=== PATIENT | male | born 1935 | race Caucasian/White ===

== ENCOUNTER 2016-11-07 11:45 | Emergency (ER) | payer OTHER ==
[~2016-11-07] VITALS: Ht 180.3 cm; Wt 94.5 kg
[~2016-11-07 11:45] MED LIST: ASPIRIN325 MG PO; CLINDAMYCIN PO; FLOXIN OTIC SOLN5 ML LEFT EAR; FUROSEMIDE40 MG PO; K-DUR20 MEQ PO; LASIX40 MG PO; LIPITOR40 MG PO; LISINOPRIL20 MG PO; LISINOPRIL40 MG PO; LOPRESSOR25 MG PO; LOVAZA1 GM PO; LOW DOSE ASPIRI81 M1 PO; METOPROLOL TART25 MG PO; OMEGA-3 + VITA1 EAC2 PO; POTASSIUM CHLO20 ME1 PO; POTASSIUM CHLO20 ME2 PO; PRINIVIL10 MG PO; PROAIR HFA8.5 GM IH; ZOLOFT50 MG PO
[2016-11-07 12:45] LABS: HEMATOCRIT 44.1 % (38.0-50.0); MCH 29.2 PG (29.0-34.0); MCHC 32.7 G/DL (30.0-36.0); MCV 89.5 FL (86-99); MEAN PLAT.VOLUME 10.4 uM^3 (9.0-12.4); PLATELET COUNT 191 K/uL (156-360); RBC DIS.WIDTH-CV 13.2 % (11.8-14.6); RBC DIS.WIDTH-SD 43.8 % (39-53); RED BLOOD COUNT 4.93 M/uL (4.00-5.50)
[2016-11-07 12:55] LABS: CHLORIDE 108 mEq/L (99-109); POTASSIUM 3.5 mEq/L (3.7-5.4); SODIUM 145 mEq/L (136-147)
[2016-11-07 12:58] LABS: GLUCOSE 117 mg/dL (70-99)
[2016-11-07 12:59] LABS: ANION GAP 9 MEQ/L (2-14)
[2016-11-07 13:00] LABS: TOTAL BILIRUBIN 2.2 mg/dL (0.0-1.0)
[2016-11-07 13:01] LABS: ALKALINE PHOSPHATASE 98 IU/L (3-129); GFR ESTIMATE (CALCULATED) > 59 mL/min/
[2016-11-07 13:02] LABS: UREA NITROGEN (BUN) 16 mg/dL (9-23)
[2016-11-07] MEDS ORDERED: METOPROLOL SUCC25 MG PO (13:19)
[2016-11-07] MEDS ORDERED: LANTUS 10100 UNITS/ SC (13:19)
[2016-11-07] MEDS ORDERED: MEMANTINE HCL5 MG PO (13:19)
[2016-11-07 15:15] LABS: ADD MIUA? YES; BILIRUBIN NEGATIVE; BLOOD SMALL; COLOR YELLOW ((YELLOW)); GLUCOSE (STRIP) NEGATIVE; KETONES 5; LEUKOCYTES NEGATIVE; NITRITE NEGATIVE; PROTEIN (STRIP) 100; SPECIFIC GRAVITY 1.018 (1.000-1.030)
[2016-11-07 15:19] LABS: BACTERIA NONE SEEN /HPF; EPITHELIAL CELLS NONE SEEN /HPF; MUCUS TRACE /LPF; RED BLOOD CELLS 0-5 /HPF (0-5); UCUL ADDED? NO; WHITE BLOOD CELLS 0-5 /HPF (0-5)
[2016-11-07 16:10] VITALS: BP 148/68
== END 2016-11-07 16:10 | disposition home or self-care (01) ==
LOC: EME 11:45
PROVIDERS: Emergency Medicine
DX: S09.90XA Unspecified injury of head, initial encounter (principal); F03.90 Unspecified dementia, unspecified severity, without behavioral disturbance, psychotic disturbance, mood disturbance, and anxiety; W07.XXXA Fall from chair, initial encounter; I11.0 Hypertensive heart disease with heart failure; I50.9 Heart failure, unspecified; I25.2 Old myocardial infarction; E78.5 Hyperlipidemia, unspecified; Z95.1 Presence of aortocoronary bypass graft; Z95.5 Presence of coronary angioplasty implant and graft; Z87.891 Personal history of nicotine dependence
CPT/HCPCS: 70450; 80053; 81003; 85027; 93005; 99281; 99285

== ENCOUNTER 2017-04-25 10:15 | Inpatient (IN) | payer OTHER ==
[~2017-04-25] VITALS: Ht 170.2 cm; Wt 92.0 kg
[~2017-04-25 10:15] MED LIST changes: +LANTUS 10100 UNITS/ SC; +MEMANTINE HCL5 MG PO; +METOPROLOL SUCC25 MG PO
[2017-04-25 11:39] LABS: MCH 29.8 PG (29.0-34.0); MCHC 33.3 G/DL (30.0-36.0); MCV 89.5 FL (86-99); PLATELET COUNT 213 K/uL (156-360); RBC DIS.WIDTH-CV 13.4 % (11.8-14.6); RBC DIS.WIDTH-SD 43.6 % (39-53); RED BLOOD COUNT 5.03 M/uL (4.00-5.50); WHITE BLOOD COUNT 14.1 K/uL (4.1-10.2)
[2017-04-25 11:50] LABS: CHLORIDE 108 mEq/L (99-109); POTASSIUM 3.8 mEq/L (3.7-5.4); SODIUM 143 mEq/L (136-147)
[2017-04-25 11:51] LABS: GLUCOSE 53 mg/dL (70-99)
[2017-04-25 11:55] LABS: CREATININE 1.1 mg/dL (0.6-1.3); GFR ESTIMATE (CALCULATED) > 59 mL/min/ (58.99-99999)
[2017-04-25 11:56] LABS: UREA NITROGEN (BUN) 19 mg/dL (9-23)
[2017-04-25 13:30] LABS: APPEARANCE CLEAR ((CLEAR)); BILIRUBIN NEGATIVE; BLOOD NEGATIVE; COLOR YELLOW ((YELLOW)); GLUCOSE (STRIP) NEGATIVE; KETONES NEGATIVE; LEUKOCYTES NEGATIVE; NITRITE NEGATIVE; PROTEIN (STRIP) NEGATIVE; SPECIFIC GRAVITY 1.021 (1.000-1.030); UROBILINOGEN 0.2 MG/DL (0.2-1.0)
[2017-04-25] MEDS ORDERED: ZESTRIL5 MG PO (17:44)
[2017-04-25] MEDS ORDERED: VENTOLIN HFA18 GM IH (17:45)
[2017-04-25] MEDS ORDERED: OMEPRAZOLE40 M1 PO (17:45)
[2017-04-25] MEDS ORDERED: NITROSTAT0.4 MG SL (17:46)
[2017-04-25] MEDS ORDERED: QUESTRAN PACKET4 GM PO (17:46)
[2017-04-25] MEDS ORDERED: ZOLOFT100 MG PO (17:47)
[2017-04-25 20:32] VITALS: BP 148/70
[2017-04-25 21:32] VITALS: BP 148/70
[2017-04-26 04:02] VITALS: BP 126/68
[2017-04-26 06:47] LABS: HEMATOCRIT 43.7 % (38.0-50.0); HEMOGLOBIN 14.3 G/DL (12.5-16.6); MCH 28.9 PG (29.0-34.0); MCHC 32.7 G/DL (30.0-36.0); MCV 88.5 FL (86-99); PLATELET COUNT 229 K/uL (156-360); RBC DIS.WIDTH-CV 13.2 % (11.8-14.6); RBC DIS.WIDTH-SD 43.1 % (39-53); RED BLOOD COUNT 4.94 M/uL (4.00-5.50); WHITE BLOOD COUNT 9.7 K/uL (4.1-10.2)
[2017-04-26 07:16] LABS: CHLORIDE 101 MEQ/L (99-109); CREATININE 1.1 MG/DL (0.6-1.3); GFR ESTIMATE (CALCULATED) > 59 mL/min/ (58.99-99999); MAGNESIUM 2.1 mg/dl (1.3-2.7); POTASSIUM 4.4 MEQ/L (3.7-5.4); SODIUM 138 MEQ/L (136-147); UREA NITROGEN (BUN) 17 mg/dL (9-23)
[2017-04-26 07:18] LABS: GLUCOSE 179 mg/dL (70-99)
[2017-04-26 07:24] VITALS: BP 168/72
[2017-04-26 11:05] VITALS: BP 130/60
[2017-04-26 15:04] VITALS: BP 130/60
[2017-04-27 00:13] VITALS: BP 140/65
[2017-04-27 03:32] VITALS: BP 119/51
[2017-04-27 06:17] LABS: BASOPHIL (%) 0.2 % (0-1); EOSINOPHIL (%) 0 % (0-5); HEMATOCRIT 39.1 % (38.0-50.0); HEMOGLOBIN 12.9 G/DL (12.5-16.6); IMMATURE GRANULOCYTE (%) 0.6 % (0.0-0.7); LYMPHOCYTE (%) 6.8 % (15-42); LYMPHOCYTE COUNT 0.9 K/uL (1.0-2.8); MCH 29.3 PG (29.0-34.0); MCV 88.9 FL (86-99); MONOCYTE (%) 3.1 % (3-12); MONOCYTE COUNT 0.4 K/uL (0-0.8); NEUTROPHIL (%) 89.3 % (45-76); NEUTROPHIL COUNT 11.3 K/uL (1.8-6.4); PLATELET COUNT 219 K/uL (156-360); RBC DIS.WIDTH-CV 13.3 % (11.8-14.6); RBC DIS.WIDTH-SD 43.5 % (39-53); WHITE BLOOD COUNT 12.6 K/uL (4.1-10.2)
[2017-04-27 06:58] LABS: CHLORIDE 102 MEQ/L (99-109); CREATININE 1.2 MG/DL (0.6-1.3); GFR ESTIMATE (CALCULATED) > 59 mL/min/ (58.99-99999); GLUCOSE 235 mg/dL (70-99); POTASSIUM 4.3 MEQ/L (3.7-5.4); SODIUM 138 MEQ/L (136-147); UREA NITROGEN (BUN) 21 mg/dL (9-23)
[2017-04-27 07:52] VITALS: BP 142/68
[2017-04-27 13:43] VITALS: BP 138/63
[2017-04-27 15:16] LABS: HEMOGLOBIN A1c (GLYCOHEMOGLOB) 5.9 % (Below 5.7)
[2017-04-27 16:23] VITALS: BP 123/62
[2017-04-27 19:38] VITALS: BP 126/60
[2017-04-28 00:07] VITALS: BP 125/68
[2017-04-28 03:54] VITALS: BP 129/60
[2017-04-28 07:09] VITALS: BP 146/70
[2017-04-28 08:02] LABS: BASOPHIL (%) 0.9 % (0-1); BASOPHIL COUNT 0.1 K/uL (0-0.1); EOSINOPHIL (%) 3.1 % (0-5); EOSINOPHIL COUNT 0.3 K/uL (0-0.3); HEMOGLOBIN 13.1 G/DL (12.5-16.6); IMMATURE GRANULOCYTE (%) 0.5 % (0.0-0.7); LYMPHOCYTE (%) 23.1 % (15-42); LYMPHOCYTE COUNT 2.6 K/uL (1.0-2.8); MCH 28.1 PG (29.0-34.0); MONOCYTE (%) 6.3 % (3-12); MONOCYTE COUNT 0.7 K/uL (0-0.8); NEUTROPHIL (%) 66.1 % (45-76); NEUTROPHIL COUNT 7.3 K/uL (1.8-6.4); PLATELET COUNT 228 K/uL (156-360); RBC DIS.WIDTH-CV 13.3 % (11.8-14.6); RBC DIS.WIDTH-SD 42.9 % (39-53); RED BLOOD COUNT 4.66 M/uL (4.00-5.50); WHITE BLOOD COUNT 11.1 K/uL (4.1-10.2)
[2017-04-28 08:54] LABS: CHLORIDE 103 MEQ/L (99-109); CREATININE 1.1 MG/DL (0.6-1.3); GFR ESTIMATE (CALCULATED) > 59 mL/min/ (58.99-99999); POTASSIUM 3.5 MEQ/L (3.7-5.4); SODIUM 141 MEQ/L (136-147); UREA NITROGEN (BUN) 21 mg/dL (9-23)
[2017-04-28 08:59] LABS: GLUCOSE 107 mg/dL (70-99)
[2017-04-28] MEDS ORDERED: DUONEB 2.5-0.5 M3 ML AEROSOL (10:46)
[2017-04-28] MEDS ORDERED: CEFTIN500 MG PO (10:46)
[2017-04-28] MEDS ORDERED: DOCUSATE SODIU100 MG PO (10:47)
[2017-04-28] MEDS ORDERED: ADVAIR HFA120 INHAL1 IH (10:47)
[2017-04-28] MEDS ORDERED: ONDANSETRON4 MG/2 ML IV (10:47)
[2017-04-28 10:48] VITALS: BP 128/62
[2017-04-28] MEDS ORDERED: PREDNISONE10 MG PO (10:48)
[2017-04-28] MEDS ORDERED: LEVEMIR100 UNIT/2 SC (10:49)
[2017-04-28] MEDS ORDERED: NOVOLOG 10100 UNITS/ SC (10:49)
[2017-04-28] MEDS ORDERED: BACITRACIN28.4 GM TP (10:50)
== END 2017-04-28 14:43 | DRG 191 ==
LOC: EME 10:15 → 5SOUTH 19:14 → EDOF 19:14 → ENRESERV 19:18 → 5SOUTH 21:38
PROVIDERS: Internal Medicine; Physician Assistant; Physician Assistant Medical
DX: J44.1 Chronic obstructive pulmonary disease with (acute) exacerbation (principal); E11.649 Type 2 diabetes mellitus with hypoglycemia without coma; R65.10 Systemic inflammatory response syndrome (SIRS) of non-infectious origin without acute organ dysfunction; I11.0 Hypertensive heart disease with heart failure; I50.42 Chronic combined systolic (congestive) and diastolic (congestive) heart failure; E11.51 Type 2 diabetes mellitus with diabetic peripheral angiopathy without gangrene; E78.5 Hyperlipidemia, unspecified; F03.90 Unspecified dementia, unspecified severity, without behavioral disturbance, psychotic disturbance, mood disturbance, and anxiety; L89.322 Pressure ulcer of left buttock, stage 2; G43.909 Migraine, unspecified, not intractable, without status migrainosus; S00.83XA Contusion of other part of head, initial encounter; S61.401A Unspecified open wound of right hand, initial encounter; W18.30XA Fall on same level, unspecified, initial encounter; R29.6 Repeated falls; Z66 Do not resuscitate; I25.810 Atherosclerosis of coronary artery bypass graft(s) without angina pectoris; I25.10 Atherosclerotic heart disease of native coronary artery without angina pectoris; I25.82 Chronic total occlusion of coronary artery; I25.5 Ischemic cardiomyopathy; I25.2 Old myocardial infarction; Z86.718 Personal history of other venous thrombosis and embolism; Z79.4 Long term (current) use of insulin; Z79.82 Long term (current) use of aspirin; Z87.891 Personal history of nicotine dependence; Z95.1 Presence of aortocoronary bypass graft; Z95.5 Presence of coronary angioplasty implant and graft
CPT/HCPCS: 70450; 71250; 80048; 81003; 82948; 83036; 83735; 85025; 85027; 87040; 87070; 87205; 87502; 92610 GN; 93005; 94640; 94640 76; 99202; 99281; 99285; J0295; J0456; J1644; J2920; J7050; J7512

== ENCOUNTER 2017-08-05 18:24 | Inpatient (IN) | payer OTHER ==
[~2017-08-05] VITALS: Ht 167.6 cm; Wt 74.8 kg
[~2017-08-05 18:24] MED LIST changes: +ADVAIR HFA120 INHAL1 IH; +BACITRACIN28.4 GM TP; +CEFTIN500 MG PO; +DOCUSATE SODIU100 MG PO; +DUONEB 2.5-0.5 M3 ML AEROSOL; +LEVEMIR100 UNIT/2 SC; +NITROSTAT0.4 MG SL; +NOVOLOG 10100 UNITS/ SC; +ONDANSETRON4 MG/2 ML IV; +PREDNISONE10 MG PO; +PRILOSEC20 MG PO; +QUESTRAN PACKET4 GM PO; +VENTOLIN HFA18 GM IH; +ZESTRIL5 MG PO; +ZOLOFT100 MG PO
[2017-08-05 19:09] LABS: HEMOGLOBIN 13.6 G/DL (12.5-16.6); MCHC 32.4 G/DL (30.0-36.0); MCV 92.7 FL (86-99); PLATELET COUNT 218 K/uL (156-360); RBC DIS.WIDTH-CV 15.4 % (11.8-14.6); RBC DIS.WIDTH-SD 52.9 % (39-53); RED BLOOD COUNT 4.53 M/uL (4.00-5.50); WHITE BLOOD COUNT 18.2 K/uL (4.1-10.2)
[2017-08-05 19:17] LABS: INTER. NORMALIZED RATIO 1.5
[2017-08-05 19:20] LABS: ALBUMIN 3.3 g/dL (3.2-4.8); CHLORIDE 117 mEq/L (99-109); POTASSIUM 3.5 mEq/L (3.7-5.4); PTT 29.4 SEC (25-37); SODIUM 159 mEq/L (136-147)
[2017-08-05 19:22] LABS: GLUCOSE 154 mg/dL (70-99)
[2017-08-05 19:24] LABS: TOTAL BILIRUBIN 0.7 mg/dL (0.0-1.0)
[2017-08-05 19:26] LABS: ALKALINE PHOSPHATASE 118 IU/L (3-129); CREATININE 2.7 mg/dL (0.6-1.3); GFR ESTIMATE (CALCULATED) 24 mL/min/ (58.99-99999)
[2017-08-05 19:27] LABS: UREA NITROGEN (BUN) 51 mg/dL (9-23)
[2017-08-05 19:28] LABS: AST (GOT) 65 IU/L (2-34)
[2017-08-05 19:29] LABS: ALT (GPT) 48 IU/L (3-49)
[2017-08-05 19:42] LABS: MAGNESIUM 2.3 mg/dL (1.3-2.7)
[2017-08-05 19:54] LABS: TROP-I INTERPRETATION NEGATIVE; TROPONIN-I 0.26 ng/mL (0.0-0.30)
[2017-08-05 21:14] LABS: C DIFF TOXIN NEGATIVE (NEGATIVE)
[2017-08-05] MEDS ORDERED: DULCOLAX10 MG PR (21:19)
[2017-08-05] MEDS ORDERED: FLEET ENEMA-AD118 ML PR (21:20)
[2017-08-05] MEDS ORDERED: GLUCAGEN1 M1 IM (21:20)
[2017-08-05] MEDS ORDERED: GLUCOSE GEL38 GM PO (21:20)
[2017-08-05] MEDS ORDERED: LEVEMIR FL100 UNIT/1 SC (21:21)
[2017-08-05] MEDS ORDERED: LIPITOR40 MG PO (21:21)
[2017-08-05] MEDS ORDERED: PHILLIPS'400 MG/5 M PO (21:23)
[2017-08-05] MEDS ORDERED: NOVOLOG PE100 UNITS/ SC (21:23)
[2017-08-05] MEDS ORDERED: PENTOXIFYLLINE400 MG PO (21:24)
[2017-08-05] MEDS ORDERED: PLAVIX75 MG PO (21:24)
[2017-08-05] MEDS ORDERED: REMERON15 M2 PO (21:26)
[2017-08-05] MEDS ORDERED: TYLENOL REGULA325 MG PO (21:26)
[2017-08-05] MEDS ORDERED: AMMONIUM LACTA224 GM TP (21:28)
[2017-08-05] MEDS ORDERED: DAKINS SOLUTIO473 M1 TP (21:28)
[2017-08-05] MEDS ORDERED: SILVADENE20 GM TP (21:29)
[2017-08-05 22:13] LABS: APPEARANCE CLOUDY ((CLEAR)); BILIRUBIN NEGATIVE; BLOOD SMALL; COLOR YELLOW ((YELLOW)); GLUCOSE (STRIP) NEGATIVE; KETONES NEGATIVE; LEUKOCYTES LARGE; NITRITE NEGATIVE; PROTEIN (STRIP) 30; SPECIFIC GRAVITY 1.016 (1.000-1.030); UROBILINOGEN 0.2 MG/DL (0.2-1.0)
[2017-08-05 22:42] LABS: EPITHELIAL CELLS NONE SEEN /HPF; RED BLOOD CELLS 0-5 /HPF (0-5); WHITE BLOOD CELLS 40-50 /HPF (0-5)
[2017-08-05 22:43] LABS: AMORPHOUS URATES CRYSTALS 3+; BACTERIA 2+ /HPF; HYALINE CASTS TNTC /LPF; MUCUS RARE /LPF; UCUL ADDED? YES
[2017-08-05 23:20] VITALS: BP 91/54
[2017-08-05 23:35] VITALS: BP 91/54
[2017-08-06] VITALS (8 sets, daily range): BP systolic 80–112; BP diastolic 46–62
[2017-08-06 06:37] LABS: HEMATOCRIT 41.7 % (38.0-50.0); HEMOGLOBIN 12.5 G/DL (12.5-16.6); MCH 28.5 PG (29.0-34.0); PLATELET COUNT 189 K/uL (156-360); RBC DIS.WIDTH-CV 15.5 % (11.8-14.6); RBC DIS.WIDTH-SD 54.5 % (39-53); RED BLOOD COUNT 4.39 M/uL (4.00-5.50); WHITE BLOOD COUNT 16.1 K/uL (4.1-10.2)
[2017-08-06 07:02] LABS: TROP-I INTERPRETATION NEGATIVE
[2017-08-06 07:10] LABS: ALBUMIN 2.9 G/DL (3.2-4.8); ALKALINE PHOSPHATASE 100 IU/L (3-129); ALT (GPT) 32 IU/L (3-49); AST (GOT) 43 IU/L (2-34); CHLORIDE 122 MEQ/L (99-109); CREATININE 2.5 MG/DL (0.6-1.3); GFR ESTIMATE (CALCULATED) 27 mL/min/ (58.99-99999); POTASSIUM 3.4 MEQ/L (3.7-5.4); SODIUM 160 MEQ/L (136-147); TOTAL BILIRUBIN 0.7 MG/DL (0.0-1.0); TOTAL PROTEIN 5.6 G/DL (6.4-8.3); UREA NITROGEN (BUN) 57 mg/dL (9-23)
[2017-08-06 07:11] LABS: GLUCOSE 113 mg/dL (70-99)
[2017-08-07 03:30] VITALS: BP 130/62
[2017-08-07 05:57] LABS: ALBUMIN 2.4 G/DL (3.2-4.8); ALKALINE PHOSPHATASE 74 IU/L (3-129); ALT (GPT) 27 IU/L (3-49); AST (GOT) 44 IU/L (2-34); CHLORIDE 118 MEQ/L (99-109); GLUCOSE 103 mg/dL (70-99); POTASSIUM 3.1 MEQ/L (3.7-5.4); TOTAL BILIRUBIN 0.8 MG/DL (0.0-1.0); TOTAL PROTEIN 5.5 G/DL (6.4-8.3); UREA NITROGEN (BUN) 41 mg/dL (9-23)
[2017-08-07 06:09] LABS: CREATININE 1.6 MG/DL (0.6-1.3); GFR ESTIMATE (CALCULATED) 45 mL/min/ (58.99-99999); SODIUM 150 MEQ/L (136-147)
[2017-08-07 10:35] LABS: APPEARANCE CLOUDY ((CLEAR)); BILIRUBIN NEGATIVE; BLOOD MODERATE; COLOR YELLOW ((YELLOW)); GLUCOSE (STRIP) NEGATIVE; KETONES NEGATIVE; LEUKOCYTES LARGE; NITRITE NEGATIVE; PROTEIN (STRIP) NEGATIVE; SPECIFIC GRAVITY 1.019 (1.000-1.030); UROBILINOGEN 0.2 MG/DL (0.2-1.0)
[2017-08-07 11:08] LABS: BACTERIA RARE /HPF; EPITHELIAL CELLS 1+ /HPF; MUCUS NONE SEEN /LPF; RED BLOOD CELLS 40-50 /HPF (0-5); UCUL ADDED? YES; WHITE BLOOD CELLS 30-40 /HPF (0-5)
[2017-08-07 11:09] LABS: CALCIUM OXALATE CRYSTALS 1+ /HPF; URIC ACID CRYSTALS 1+ /HPF
[2017-08-07 11:47] VITALS: BP 107/57
[2017-08-07 12:23] LABS: PREALBUMIN 10.6 mg/dL (10-40)
[2017-08-07 15:51] VITALS: BP 110/59
[2017-08-07 19:52] VITALS: BP 109/55
[2017-08-07 23:20] VITALS: BP 118/56
[2017-08-08 06:19] LABS: HEMATOCRIT 36.3 % (38.0-50.0); HEMOGLOBIN 11.3 G/DL (12.5-16.6); MCH 28.7 PG (29.0-34.0); MCHC 31.1 G/DL (30.0-36.0); MCV 92.1 FL (86-99); PLATELET COUNT 158 K/uL (156-360); RBC DIS.WIDTH-CV 14.8 % (11.8-14.6); RBC DIS.WIDTH-SD 50.1 % (39-53); RED BLOOD COUNT 3.94 M/uL (4.00-5.50); WHITE BLOOD COUNT 10.8 K/uL (4.1-10.2)
[2017-08-08 06:28] LABS: CHLORIDE 118 MEQ/L (99-109); GFR ESTIMATE (CALCULATED) > 59 mL/min/ (58.99-99999); GLUCOSE 85 mg/dL (70-99); SODIUM 150 MEQ/L (136-147); UREA NITROGEN (BUN) 22 mg/dL (9-23)
[2017-08-08 06:36] LABS: CREATININE 1.1 MG/DL (0.6-1.3)
[2017-08-08 07:13] VITALS: BP 121/58
[2017-08-08 12:31] VITALS: BP 124/60
[2017-08-08 15:49] VITALS: BP 108/61
[2017-08-08 18:47] VITALS: BP 130/62
[2017-08-09 04:36] VITALS: BP 124/60
[2017-08-09 05:42] LABS: ALBUMIN 2.6 G/DL (3.2-4.8); ALKALINE PHOSPHATASE 74 IU/L (3-129); ALT (GPT) 27 IU/L (3-49); AST (GOT) 40 IU/L (2-34); CHLORIDE 117 MEQ/L (99-109); CREATININE 0.9 MG/DL (0.6-1.3); GFR ESTIMATE (CALCULATED) > 59 mL/min/ (58.99-99999); GLUCOSE 65 mg/dL (70-99); SODIUM 150 MEQ/L (136-147); TOTAL BILIRUBIN 0.7 MG/DL (0.0-1.0); TOTAL PROTEIN 5.6 G/DL (6.4-8.3); UREA NITROGEN (BUN) 13 mg/dL (9-23)
[2017-08-09 07:46] VITALS: BP 138/80
[2017-08-09 12:06] VITALS: BP 130/60
[2017-08-09 20:29] VITALS: BP 130/63
[2017-08-09 23:31] VITALS: BP 117/56
[2017-08-10 04:07] VITALS: BP 127/60
[2017-08-10 08:00] VITALS: BP 120/60
[2017-08-10 16:43] VITALS: BP 130/62
[2017-08-10 23:10] VITALS: BP 118/58
[2017-08-11 04:05] VITALS: BP 133/64
[2017-08-11 07:53] VITALS: BP 140/61
[2017-08-11 12:53] LABS: HEMATOCRIT 34.1 % (38.0-50.0); MCH 29.4 PG (29.0-34.0); MCHC 32.3 G/DL (30.0-36.0); MCV 91.2 FL (86-99); PLATELET COUNT 188 K/uL (156-360); RBC DIS.WIDTH-CV 15.1 % (11.8-14.6); RBC DIS.WIDTH-SD 50.1 % (39-53); RED BLOOD COUNT 3.74 M/uL (4.00-5.50); WHITE BLOOD COUNT 10.3 K/uL (4.1-10.2)
[2017-08-11 13:18] LABS: ALBUMIN 2.4 G/DL (3.2-4.8); ALKALINE PHOSPHATASE 72 IU/L (3-129); ALT (GPT) 25 IU/L (3-49); AST (GOT) 30 IU/L (2-34); CHLORIDE 115 MEQ/L (99-109); CREATININE 0.6 MG/DL (0.6-1.3); GFR ESTIMATE (CALCULATED) > 59 mL/min/ (58.99-99999); POTASSIUM 3.4 MEQ/L (3.7-5.4); SODIUM 146 MEQ/L (136-147); TOTAL PROTEIN 4.8 G/DL (6.4-8.3); UREA NITROGEN (BUN) 5 mg/dL (9-23)
[2017-08-11 13:24] LABS: GLUCOSE 108 mg/dL (70-99); TOTAL BILIRUBIN 0.5 MG/DL (0.0-1.0)
[2017-08-11] MEDS ORDERED: DOXYCYCLINE HY100 MG PO (14:00)
[2017-08-11] MEDS ORDERED: LEVEMIR100 UNIT/2 SC (14:00)
[2017-08-11 17:03] VITALS: BP 131/60
== END 2017-08-11 18:00 | DRG 872 ==
LOC: EME 18:24 → EDOF 21:45 → 4EAST 21:45 → ENRESERV 21:52 → 4EAST 23:15 → ENRESERV 08-07 13:34 → 3EAST 08-07 15:05
PROVIDERS: Emergency Medicine; Family Medicine; Internal Medicine; Nurse Practitioner
DX: A41.9 Sepsis, unspecified organism (principal); R65.20 Severe sepsis without septic shock; N39.0 Urinary tract infection, site not specified; L03.116 Cellulitis of left lower limb; L89.620 Pressure ulcer of left heel, unstageable; B95.62 Methicillin resistant Staphylococcus aureus infection as the cause of diseases classified elsewhere; N17.9 Acute kidney failure, unspecified; E87.0 Hyperosmolality and hypernatremia; E86.0 Dehydration; I13.0 Hypertensive heart and chronic kidney disease with heart failure and stage 1 through stage 4 chronic kidney disease, or unspecified chronic kidney disease; I50.22 Chronic systolic (congestive) heart failure; E11.22 Type 2 diabetes mellitus with diabetic chronic kidney disease; N18.9 Chronic kidney disease, unspecified; L22 Diaper dermatitis; E11.51 Type 2 diabetes mellitus with diabetic peripheral angiopathy without gangrene; E78.5 Hyperlipidemia, unspecified; I25.5 Ischemic cardiomyopathy; J44.9 Chronic obstructive pulmonary disease, unspecified; I25.10 Atherosclerotic heart disease of native coronary artery without angina pectoris; F03.90 Unspecified dementia, unspecified severity, without behavioral disturbance, psychotic disturbance, mood disturbance, and anxiety; I25.2 Old myocardial infarction; Z86.718 Personal history of other venous thrombosis and embolism; Z87.891 Personal history of nicotine dependence; Z95.1 Presence of aortocoronary bypass graft; Z95.5 Presence of coronary angioplasty implant and graft; Z79.82 Long term (current) use of aspirin
CPT/HCPCS: 71045; 73650; 80048; 80053; 80202; 81003; 82948; 83605; 83735; 83880; 84134; 84484; 85027; 85610; 85651; 85730; 86140; 87040; 87070; 87075; 87077; 87086; 87147; 87186; 87205; 87493; 87641; 93005; 94799; 99202; 99281; 99285; J1644; J1815; J2543; J3370; J7040; J7050